=== PATIENT | male | born 1990 | race Caucasian/White ===

== ENCOUNTER 2017-01-27 03:39 | Observation (INO) | payer OTHER ==
[2017-01-27 05:51] LABS: Hematocrit 45 % (42-52); Hemoglobin 14.9 g/dl (14.0-18.0); Mean Corpuscular HGB Conc 33 g/dl (31-36); Mean Corpuscular Hemoglobin 28 pg (27-31); Mean Corpuscular Volume 84 fL (80-94); Mean Platelet Volume 8 um3 (7.4-10.4); Red Blood Count 5.38 10^6/ul (4.0-5.4); Red Cell Distribution Width 13 % (10.5-15); White Blood Count 9.4 10^3/ul (3.5-10.8)
[2017-01-27 06:01] LABS: ALT 22 U/L (7-52); AST 19 U/L (13-39); Albumin 4.5 g/dL (3.2-5.2); Alkaline Phosphatase 55 U/L (34-104); Anion Gap 7 mmol/L (2-11); BUN/Creatinine Ratio 13.7 (8-20); Blood Urea Nitrogen 17 mg/dL (6-24); CO2 Carbon Dioxide 28 mmol/L (22-32); Calcium 9.8 mg/dL (8.6-10.3); Chloride 103 mmol/L (101-111); Creatine Kinase 78 U/L (10-223); EGFR African American 89.3 (>60); EGFR Non-African American 69.4 (>60); Globulin 3.1 g/dL (2-4); Glucose 94 mg/dL (70-100); Potassium 3.7 mmol/L (3.5-5.0); Sodium 138 mmol/L (133-145); Total Protein 7.6 g/dL (6.4-8.9)
[2017-01-27 06:03] LABS: Acetaminophen < 15 mcg/mL; Alcohol < 10 mg/dL (<10); Salicylate < 2.50 mg/dL (<30)
[2017-01-27 06:14] LABS: TSH (Thyroid Stimulating Horm) 2.22 mcIU/mL (0.34-5.60)
--- NOTE | 2017-01-27 06:59 | ED ---
Khurram Hayes Rebecca, scribed for Kevin Crockett MD on 01/27/17 at 0546 . Substance Abuse/Use - HPI Summary HPI Summary: Pt is a 26 y/o M BIBA who presents to ED s/p Benadryl OD. Pt reports during evaluation that he took 6 Benadryl, whereas the nurse's triage reports 15 50 mg Benadryl were taken. Pt reports he started taking Benadryl last night before going to bed because he could not sleep. He also reported he started tkaing them "sometime in the morning" and then some more "later in the afternoon." Pt p /w slurred speech. Denies SIs, dry mouth and abdominal pain. States he called EMS because he "started to feel weird, like freakish." History is limited due to difficulty following pt's train of thought. - History Of Current Complaint Chief Complaint: EDOverdose Stated Complaint: OVERDOSE Time Seen by Provider: 01/27/17 04:13 Hx Obtained From: Patient, Medical Records Ingestion History: Type/Name Of Drug - Benadryl Overdose Characteristics: Oral Character: Other - Slurred speech Aggravating Factor(s): Nothing Alleviating Factor(s): Nothing Associated Signs And Symptoms: Other: - Denies SIs, cry mouth and abdominal pain - Allergies/Home Medications Allergies/Adverse Reactions: Allergies Allergy/AdvReac Type Severity Reaction Status Date / Time No Known Allergies Allergy Verified 01/27/17 04:27 Home Medications: Home Medications NK [No Home Medications Reported] 01/27/17 [History Confirmed 01/27/17] PMH/Surg Hx/FS Hx/Imm Hx Endocrine/Hematology History: Denies: Hx Diabetes, Hx Thyroid Disease Cardiovascular History: Denies: Hx Congestive Heart Failure, Hx Deep Vein Thrombosis, Hx Hypertension , Hx Myocardial Infarction, Hx Pacemaker/ICD Respiratory History: Denies: Hx Asthma, Hx Chronic Obstructive Pulmonary Disease (COPD), Hx Lung Cancer, Hx Pneumonia, Hx Pulmonary Embolism GI History: Denies: Hx Gall Bladder Disease, Hx Gastrointestinal Bleed, Hx Ulcer, Hx Urosepsis History: Denies: Hx Kidney Stones, Hx Renal Disease Neurological History: Denies: Hx Dementia, Hx Migraine, Hx Seizures, Hx Transient Ischemic Attacks (TIA) Psychiatric History: Denies: Hx Anxiety, Hx Depression, Hx Schizophrenia, Hx Bipolar Disorder - Surgical History Surgery Procedure, Year, and Place: appendectomy, tonsillectomy Infectious Disease History: No Infectious Disease History: Denies: History Other Infectious Disease, Traveled Outside the [place] in Last 30 Days - Family History Known Family History: Positive: Seizure Disorder - Sister had seizure disorder. Negative: Blood Disorder - Social History Alcohol Use: Rare Substance Use Type: Reports: Marijuana, Other Substance Use Comment - Amount & Last Used: meth Smoking Status (MU): Heavy Every Day Tobacco Smoker Type: Cigarettes Amount Used/How Often: 1/2 ppd Length of Time of Smoking/Using Tobacco: 10 years Have You Smoked in the Last Year: Yes Review of Systems Positive: Other - NEGATIVE: dry mouth Negative: Abdominal Pain Neurological: Other - slurred speech Positive: Other - NEGATIVE: SIs All Other Systems Reviewed And Are Negative: Yes Physical Exam - Summary Physical Exam Summary: The patient is well-nourished in no acute distress and in no acute pain. The skin is warm and dry and skin color reflects adequate perfusion. HEENT: The head is normocephalic and atraumatic. The pupils are equal and reactive. Pupils are not pinpinted and not dilated. The conjunctivae are clear and without drainage and the sclera are not injected. Nares are patent and without drainage. Mouth reveals dry mucous membranes and the throat is without erythema and exudate. The external ears are intact. The ear canals are patent and without drainage. The tympanic membranes are intact. Neck is supple with full range of motion and non-tender. Respiratory: Chest is non-tender. Lungs are clear to auscultation and breath sounds are symmetrical and equal. Cardiovascular: Hear is regular rhythm and tachycardic. There is no murmur or rub auscultated. There is no peripheral edema and pulses are symmetrical and equal. Abdomen: The abdomen is soft and non-tender. There are normal bowel sounds heard in all four quadrants and there is no organomegaly palpated. Musculoskeletal: There is no back pain noted. Extremities are non-tender with full range of motion. There is good capillary refill. There is no peripheral edema or calf tenderness elicited. Neurological: Patient is not alert and confused with slurred speech. It is difficult to follow his train of thought. No focal neurological deficits. Psychiatric: The patient has an appropriate affect and does not exhibit any anxiety or depression. Triage Information Reviewed: Yes Vital Signs On Initial Exam: Initial Vitals Temp Pulse Resp BP Pulse Ox 100.0 F 105 18 173/95 99 01/27/17 03:41 01/27/17 03:41 01/27/17 03:41 01/27/17 03:41 01/27/17 03:41 Vital Signs Reviewed: Yes - Anders Coma Scale Coma Scale Total: 15 Diagnostics - Vital Signs Vital Signs Temp Pulse Resp BP Pulse Ox 01/27/17 03:45 100.0 F 105 18 173/95 99 01/27/17 03:41 100.0 F 105 18 173/95 99 - Laboratory Lab Results: Lab Results 01/27/17 01/27/17 01/27/17 Range/Units 04:40 04:40 05:17 WBC 9.4 (3.5-10.8) 10^3/ul RBC 5.38 (4.0-5.4) 10^6/ul Hgb 14.9 (14.0-18.0) g/dl Hct 45 (42-52) % MCV 84 (80-94) fL MCH 28 (27-31) pg MCHC 33 (31-36) g/dl RDW 13 (10.5-15) % Plt Count 354 (150-450) 10^3/ul MPV 8 (7.4-10.4) um3 Neut % (Auto) 70.1 (38-83) % Lymph % (Auto) 23.0 L (25-47) % [place] % (Auto) 6.0 (1-9) % Eos % (Auto) 0.3 (0-6) % Baso % (Auto) 0.6 (0-2) % Absolute Neuts (auto) 6.6 (1.5-7.7) 10^3/ul Absolute Lymphs (auto) 2.2 (1.0-4.8) 10^3/ul Absolute Monos (auto) 0.6 (0-0.8) 10^3/ul Absolute Eos (auto) 0 (0-0.6) 10^3/ul Absolute Basos (auto) 0.1 (0-0.2) 10^3/ul Absolute Nucleated RBC 0 10^3/ul Nucleated RBC % 0 Sodium 138 (133-145) mmol/L Potassium 3.7 (3.5-5.0) mmol/L Chloride 103 (101-111) mmol/L Carbon Dioxide 28 (22-32) mmol/L Anion Gap 7 (2-11) mmol/L BUN 17 (6-24) mg/dL Creatinine 1.24 H (0.67-1.17) mg/dL Est GFR ( Amer) 89.3 (>60) Est GFR (Non-Af Amer) 69.4 (>60) BUN/Creatinine Ratio 13.7 (8-20) Glucose 94 (70-100) mg/dL Lactic Acid 1.2 (0.5-2.0) mmol/L Calcium 9.8 (8.6-10.3) mg/dL Total Bilirubin 0.40 (0.2-1.0) mg/dL AST 19 (13-39) U/L ALT 22 (7-52) U/L Alkaline Phosphatase 55 (34-104) U/L Total Creatine Kinase 78 (10-223) U/L Total Protein 7.6 (6.4-8.9) g/dL Albumin 4.5 (3.2-5.2) g/dL Globulin 3.1 (2-4) g/dL Albumin/Globulin Ratio 1.5 (1-3) TSH 2.22 (0.34-5.60) mcIU/mL Salicylates < 2.50 (<30) mg/dL Acetaminophen < 15 mcg/mL Serum Alcohol < 10 (<10) mg/dL Result Diagrams: 01/27/17 04:40 01/27/17 04:40 Lab Statement: Any lab studies that have been ordered have been reviewed, and results considered in the medical decision making process. - EKG 0354 Cardiac Rate: NL - 94 bpm EKG Rhythm: Sinus Rhythm ST Segment: Non-Specific - Non-specific ST changes EKG Interpretation: Normal axis, no STEMI Course/Dx - Course Assessment/Plan: Pt is a 26 y/o M BIBA who presents to ED s/p Benadryl OD. Pt reports during evaluation that he took 6 Benadryl, whereas the nurse's triage reports 15 50 mg Benadryl were taken. Pt reports he started taking Benadryl last night before going to bed because he could not sleep. He also reported he started tkaing them "sometime in the morning" and then some more "later in the afternoon." Pt p/w slurred speech. Denies SIs, dry mouth and abdominal pain. States he called EMS because he "started to feel weird, like freakish.". History is limited due to difficulty following pt's train of thought. EKG is sinus rhythm with no STEMI. Elevated BP noted and advised to f/u. In the ED course, pt was given fluids. Anticpiated that the pt will be D/C to home with Dx of drug overdose and a follow up with his PCP. - Diagnoses Differential Diagnosis/HQI/PQRI: Positive: Drug Abuse Provider Diagnoses: Drug overdose Discharge - Discharge Plan Condition: Stable Disposition: HOME Patient Education Materials: Adult Overdose (ED) Referrals: No Primary Care Phys,NOPCP [Primary Care Provider] - [facility] [Outside] The documentation as recorded by the Khurram aquino Rebecca accurately reflects the service I personally performed and the decisions made by me, Kevin Crockett MD.
[2017-01-27] MEDS: NS 0.9% 1000 ML* 2,000 ML IV ONE ×2 (07:52→07:53)
[2017-01-27] MEDS ORDERED: NS 0.9% 1000 ML* 1,000 ML IV SCH (08:15)
[2017-01-27] MEDS ORDERED: Acetaminophen TAB* 325 MG PO PRN (08:37)
[2017-01-27] MEDS ORDERED: Ondansetron INJ* 2 MG/ML VIAL IV PRN (08:37)
--- NOTE | 2017-01-27 09:44 | ED ---
I, Oumar Azar, scribed for Wilmer Beach MD on 01/27/17 at 0843 . Progress - Progress Note Progress Note: Consulted Dr. Osborne (hospitalist) who agrees to admit the patient. Mr. Frank admits to taking a lot of benadryl over the course of the last 12-24 hours with his last dose about 0100. He has been here 5 hours with no change in his clinical condition and I have asked the hospitalists to admit him. He has some elements clinically of antihistamine toxicity but there may be more on board. He is admitted in serious condition with a diagnosis of antihistamine OD. Course/Dx - Diagnoses Provider Diagnoses: Drug overdose - Provider Notifications Discussed Care Of Patient With: Renetta Osborne Time Discussed With Above Provider: 08:00 Instructed by Provider To: Other - Consulted Dr. Osborne (hospitalist) who agrees to admit the patient. The documentation as recorded by the Nissa aquino Alfonso accurately reflects the service I personally performed and the decisions made by me, Wilmer Beach MD.
[2017-01-27] MEDS ORDERED: Mouth Piece, Nicotine* 1 EACH CARTRIDGE INH PRN (09:50)
[2017-01-27] MEDS ORDERED: Nicotine Inhaler* 10 MG AMP INH PRN (09:50)
[2017-01-27] MEDS ORDERED: Nicotine PATCH 21 MG/24 HR* PATCH TRANSDERM SCH (10:30)
[2017-01-27 11:24] VITALS: BP 130/82
--- NOTE | 2017-01-27 12:41 | CONSULT ---
Identification - Patient Identification Reason for Psychiatric Consultation: Suicidal Ideation, Homicidal Ideation -: Patient is a 26 year old, M admitted on 01/27/17. - MHU Identification Hx Psychiatric Hospitalization: Yes - Patient non-compliance with most of interview Prior Psychiatric Diagnosis: Unspecified depressive disorder Arrived to Hospital Via: Ambulatory History - Objective HPI: HPI: ------ Patient is a 26yo male with PPHx significant for an Unspecified depressive d/o. He reports hx of prior psychiatric hospitalization and prior suicide attempt. Patient admitted to [facility] for IVFs and monitoring after self reported OD on Benadryl. Patient declines to participate in interview. He does endorse report of having recently broken up with his GF. Patient is easily agitated. He denies SI/HI. He is focused on discharge. He declines [facility] for this provider to talk to roommates, GF, and reports he has no family. Patient reports he did not OD on Benadryl, and reports he took 2-3 at a time throughout the day to get away from it. Due to patient's hx of suicide attempt and report of recent SIB, apathy, and diminished mood, recommendation made to transfer patient to [facility] by phone to primary physician. Patient reportedly eloped after encounter with this provider. Past Psych Hx: Inpt - Patient reports hx of psychiatric hospitalization. Outpt - Patient declines to engage the interview or provide [facility] for collateral information. Psychotropic med hx - Patient declines to engage the interview or provide [facility] for collateral information. Suicide attempt Hx and Hx of SIB: Patient declines to engage the interview or provide [facility] for collateral information. Substance Hx: Patient declines to engage the interview or provide [facility] for collateral information. Medical Hx: None reported Allergies: --------- NKDA Family Hx: Patient declines to engage the interview or provide [facility] for collateral information. Social Hx: --------- Patient declines to engage the interview or provide [facility] for collateral information. MSE: ----- Appearance - moderate build male, looks stated age, fair hygeine, in NAD Behavior - easily agitated, uncooperative Speech - RVR, prosody wnl Eye Contact - poor Mood - "fine" Affect - constricted TP - linear and GD TC - focused on discharge Perception - no signs of psychosis noted or reported Orientation - A&Ox3 Cognition - intact Insight - poor Judgement - poor SI / HI SI present on admission, currently denies both ASSESSMENT: 1. Unspecified depressive disorder 2. R/O s/p Suicide attempt by OD on Benadryl Recommendation: 1. Recommend transfer to [facility], once medically stable, for ongoing psychiatric care. Exam Appearance: Well Developed/Nourished Hygiene: Normal Grooming: Fairly Well Kept Psychomotor Activities: Normal Attitude and Relatedness: Hostile Eye Contact: Poor - Speech Quality: Unpressured Latencies: Normal Quantity: Terse Patient's Decription of Mood: "Fine" Observed Affect: Constricted Affect Consistent with: Dysphoria Patient's Thought Process: Goal Directed Thought Content: No Passive Wish - Patient non-compliance with most of interview, No Suicidal Planning - Patient non-compliance with most of interview , No Homicidal Ideation - Patient non-compliance with most of interview, No Paranoid Ideation - Patient non-compliance with most of interview Type of Hallucinations: Visual: No - Patient non-compliance with most of interview, Auditory: No - Patient non-compliance with most of interview, Command : No - Patient non-compliance with most of interview Level of Consciousness: Alert Orientation: Yes Intact, Yes Orientated to Time, Yes Orientated to Place, Yes Orientated to Person Impulse Control: Poor Insight and Judgement: Poor Impression - Impression Clinical Impression: Unspecified Depressive Disorder Inpatient DSM-IV Dx: Unspecified Depressive Disorder Merits Inpatient Hospitalization: Yes - [place] [facility] Mental Illness: Unspecified Depressive Disorder Problem List - U Problems Type of Problem: Affect Status of Problem: Active Problem: Depression with recent suicide attempt vs SIB Plan - Treatment Plan Treatment Plan: Recommendation: 1. Recommend transfer to [facility], once medically stable, for ongoing psychiatric care. Continued Medication Management: Start Medication Medications: Current Medications Acetaminophen (Tylenol Tab*) 650 mg PO Q4H PRN PRN Reason: PAIN Device (Nicotine Mouth Piece*) 1 each INH .USE WITH NICOTROL PRN PRN Reason: CRAVING Sodium Chloride (Ns 0.9% 1000 Ml*) 1,000 mls @ 150 mls/hr IV PER RATE [facility] Last Admin: 01/27/17 11:44 Dose: 150 mls/hr Nicotine (Nicotine Inhaler*) 10 mg INH Q2H PRN PRN Reason: CRAVING Nicotine (Nicotine Patch 21 Mg/24 Hr*) 1 patch TRANSDERM DAILY@0800 [facility] Last Admin: 01/27/17 11:29 Dose: Not Given Ondansetron HCl (Zofran Inj*) 4 mg IV Q6H PRN PRN Reason: NAUSEA Pharmacy Profile Note (Nicotine Patch Removal Note*) 1 note FOLLOW UP 2099 [facility] - Discharge Plan Discharge Plan: Outpatient Follow Up
--- NOTE | 2017-01-27 14:14 | HP ---
HISTORY AND PHYSICAL: DATE OF ADMISSION: 01/27/17 PRIMARY CARE PROVIDER: None. CHIEF COMPLAINT: Benadryl overdose. HISTORY OF PRESENT ILLNESS: Mr. Frank is a 26-year-old male who states that beginning yesterday mid morning, he began to take two tablets of generic sleep aid (Benadryl 50 mg a piece) every couple of hours to try to go sleep. The patient states that he was not doing this in an attempt to harm himself. Of note, he has been fighting recently with his girlfriend but again denies that this is the reason for taking this much Benadryl. The patient stated that he became scarred at approximately 1 a.m. and called the ambulance because he did not want to . The patient notes that his speech was slurred but he states that it is getting better. He denies any lightheadedness but has not really been out of bed. During my evaluation, the patient states that he has to get home because his child is going to school tomorrow; when I corrected him that tomorrow is Monday, he said "Oh, right." The patient also noticed a tray going by the door in the emergency room and he questioned where that tray was going as he needed to take care of it. PAST MEDICAL HISTORY: None. PAST SURGICAL HISTORY: Appendectomy. MEDICATIONS: None. ALLERGIES: No known drug allergies. FAMILY HISTORY: Mom is living; she is 48. She has history of glaucoma. Dad is living; he is 48. He is unaware of his health. SOCIAL HISTORY: The patient smokes 1 pack per day x15 years. He does not drink alcohol. He does not use drugs routinely though states that he has tried illicit drugs in the past. He does not elaborate on this. He is unemployed. He has a girlfriend. He has three children and one on the way. He indicates that his girlfriend Eleanor Fletcher would be his healthcare proxy. He is unaware of her phone number. REVIEW OF SYSTEMS: The patient denies any fevers, chills, anorexia. No chest pain. No edema. No palpitations. No cough. No shortness of breath. No nausea, vomiting, abdominal pain, constipation, diarrhea, hematochezia. No hematuria, no dysuria, no focal weakness or sensory loss. No sudden changes in vision. No dysphagia. No joint pains or muscle pains out of the ordinary. No rashes, no anxiety or depression. PHYSICAL EXAMINATION GENERAL: The patient is a well-developed young male lying in the stretcher, in no acute distress. VITAL SIGNS: Blood pressure 127/90, pulse 83, respirations 20, temperature 100 , O2 sat 100% on room air. HEENT: Pupils are equal, they are round, they react to light. Extraocular muscles are intact. Oropharynx is clear. Oral mucosa is moist. NECK: There is no submandibular, cervical, or supraclavicular adenopathy noted. Thyroid is not enlarged. No thyroid nodules are noted. PULMONARY: Lungs are clear to auscultation bilaterally. CARDIAC: Normal S1 and S2. Regular rate and rhythm. I do not appreciate any murmurs. ABDOMEN: Bowel sounds present. Abdomen is soft, nontender, nondistended. MUSCULOSKELETAL: There is no cyanosis or clubbing of the digits. There is full active range of motion of all 4 extremities. SKIN: Warm and dry. There are no rashes. NEURO: Cranial nerves II through XII are grossly intact. Sensation is intact to light touch. Strength is 5/5 and symmetric in both upper and lower extremities bilaterally. The patient's speech is somewhat slurred. PSYCH: The patient is alert. He seems at times confused. He makes very poor eye contact during my entire evaluation. LABORATORY DATA/IMAGING STUDIES: WBC 9.4, hemoglobin 14.9, hematocrit 45, platelets 354. Sodium 138, potassium 3.7, chloride 103, CO2 28, BUN 17, creatinine 1.24, glucose 94, lactic acid 1.2, calcium 9.8, bilirubin 0.4, AST 19 , ALT 22, alk phos 55. CPK 78, albumin 4.5, TSH 2.22, salicylate less than 2.5 , Tylenol less than 15, alcohol less than 10. EKG reveals normal sinus rhythm without any acute ST or T wave abnormalities ASSESSMENT AND PLAN: Mr. Frank is a 26-year-old male who reportedly unintentionally overdosed on Benadryl yesterday in an attempt to get sleep who presented to the emergency room on self referral due to being concerned about the amount of Benadryl he took. 1. Unintentional Benadryl overdose. While the patient states that this is unintentional, I am concerned given the behavior especially taking as many tablets of Benadryl as he did throughout the day to try to sleep during the middle of the day, which would seem odd. I do feel that he needs a psychiatry evaluation prior to being discharged home. The patient was noted to be confused and with continued slurred speech in the emergency room. I do not feel that it is safe for him to be discharged home at this point. I do not feel that he should leave the hospital even against medical advice until he is seen by Psychiatry as again I am concern that this may not have been completely unintentional. The patient will continue to receive normal saline at 150 mL per hour. Vital signs will be monitored. I have spoke with Dr. Spangler from Psychiatry who will be up to see the patient, hopefully later this morning. I did inform the patient that perhaps he can go home later this afternoon when he stated that he wished to leave out of the emergency room. 2. DVT prophylaxis: According to the Adult Thrombosis Prophylaxis Risk Factor Assessment Guide, the patient has a total risk factor score of 0, making him low risk, ambulation will be utilized as DVT prophylaxis. 3. Code status: Full. Again the patient indicates that his girlfriend Eleanor Fletcher is his healthcare proxy. Fifty-five minutes was spent admitting this patient. [id number]/[facility] #: [id number] JUDI
--- NOTE | 2017-01-27 20:53 | PN ---
Progress Note - Progress Note Date of Service: 01/27/17 Note: I was notified by nursing that the patient eloped around 1645. He had met with the psychiatrist just a short while before. When I spoke with Dr. Spangler he stated the patient was not cooperative and refused to answer his questions. Dr. Spangler stated that he wanted the patient to be admitted to the MHU. I did not think the patient was ready to go to the MHU tonight so I recommended he go tomorrow. Given the patient was supposed to go to the MHU, security and the [place] police were contacted. I filled out 9.57 paperwork to have the patient brought back to the ER.
[2017-01-27] MEDS ORDERED: Nicotine Patch Removal NOTE FOLLOW UP SCH (21:00)
--- NOTE | 2017-02-01 23:31 | DS ---
DISCHARGE SUMMARY: DATE OF ADMISSION: 01/27/17 DATE OF DISCHARGE AGAINST MEDICAL ADVICE: 01/27/17 PRINCIPAL DIAGNOSIS: Benadryl overdose. DISCHARGE MEDICATIONS: None. HOSPITAL COURSE: Mr. 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 At the time of my evaluation, the patient was sleepy and he seemed somewhat confused. I was concerned about his story of the overdose; therefore, admitted him to the telemetry floor. I had Psychiatry see the patient. The patient essentially refused to speak with the psychiatrist. Approximately 30 minutes after the psychiatrist left the room, the nurse went to check on the patient and he was found to have eloped from the hospital. The patient, therefore, was discharged against medical advice. There were concerns about the patient's eloping when the psychiatrist did recommend that he be admitted to the mental health unit; therefore, security in the hospital was notified and [facility] was notified. I filled out paperwork to have the patient brought back by law enforcement if necessary. FOLLOWUP CONCERNS: The patient is discharged against medical advice on and is to be brought back by law enforcement for reevaluation. TIME SPENT: 10 minutes spent on this discharge. [id number]/[facility] #: [id number]
== END 2017-01-27 17:00 ==
LOC: ED 03:39 → MEDTELE 08:12
PROVIDERS: ADMIT Hospitalist; ATTEND Hospitalist
DX: T45.0X2A Poisoning by antiallergic and antiemetic drugs, intentional self-harm, initial encounter (principal); F32.9 Major depressive disorder, single episode, unspecified; F17.210 Nicotine dependence, cigarettes, uncomplicated
CPT/HCPCS: 36415; 80053; 80320; 80329; 82550; 83605; 84443; 85025; 93005; 96360; 96361; 99283; A9270-GY; G0378; G0480

== ENCOUNTER → 2017-01-27 19:00 | Emergency (ER) | payer OTHER ==
[2017-01-27 19:49] LABS: Hematocrit 42 % (42-52); Hemoglobin 13.8 g/dl (14.0-18.0); Mean Corpuscular HGB Conc 33 g/dl (31-36); Mean Corpuscular Hemoglobin 28 pg (27-31); Mean Corpuscular Volume 85 fL (80-94); Mean Platelet Volume 7 um3 (7.4-10.4); Red Blood Count 4.94 10^6/ul (4.0-5.4); Red Cell Distribution Width 13 % (10.5-15)
[2017-01-27 19:53] LABS: Urine Bilirubin Negative (Negative); Urine Glucose Negative (Negative); Urine Nitrite Negative (Negative)
[2017-01-27 20:04] LABS: ALT 19 U/L (7-52); AST 16 U/L (13-39); Albumin 4.5 g/dL (3.2-5.2); Alkaline Phosphatase 50 U/L (34-104); Anion Gap 4 mmol/L (2-11); BUN/Creatinine Ratio 10.5 (8-20); Blood Urea Nitrogen 10 mg/dL (6-24); CO2 Carbon Dioxide 26 mmol/L (22-32); Calcium 9.5 mg/dL (8.6-10.3); Chloride 107 mmol/L (101-111); EGFR African American 121.4 (>60); EGFR Non-African American 94.4 (>60); Globulin 2.6 g/dL (2-4); Glucose 95 mg/dL (70-100); Potassium 3.9 mmol/L (3.5-5.0); Sodium 137 mmol/L (133-145); Total Protein 7.1 g/dL (6.4-8.9)
[2017-01-27 20:05] LABS: Benzodiazepine Urine Screen None Detected (None Detect)
[2017-01-27 20:44] LABS: Acetaminophen < 15 mcg/mL; Alcohol < 10 mg/dL (<10); Salicylate < 2.50 mg/dL (<30)
[2017-01-27 20:54] LABS: TSH (Thyroid Stimulating Horm) 0.78 mcIU/mL (0.34-5.60)
[2017-01-27 23:06] VITALS: BP 131/68
--- NOTE | 2017-01-28 05:53 | ED ---
Stanley Hayes SooYoung, scribed for Kevin Crockett MD on 01/27/17 at 1931 . Psychiatric Complaint - HPI Summary HPI Summary: LEVEL 5 CAVEAT - UNCOOPERATIVE A 26 y/o M presents to ED for MHE. 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 Pt was admitted, but attempted to leave. He was detained 945 by police. Pt is angry, uncooperative for exam. - History Of Current Complaint Chief Complaint: EDGeneral Hx Obtained From: Patient Timing: Constant Related History: Positive For: Prior Psychiatric Issues Has Suicidal: Denies: Thoughts - Allergies/Home Medications Allergies/Adverse Reactions: Allergies Allergy/AdvReac Type Severity Reaction Status Date / Time No Known Allergies Allergy Verified 01/27/17 04:27 PMH/Surg Hx/FS Hx/Imm Hx Previously Healthy: No - Overdose Endocrine/Hematology History: Denies: Hx Diabetes, Hx Thyroid Disease Cardiovascular History: Denies: Hx Congestive Heart Failure, Hx Deep Vein Thrombosis, Hx Hypertension , Hx Myocardial Infarction, Hx Pacemaker/ICD Respiratory History: Denies: Hx Asthma, Hx Chronic Obstructive Pulmonary Disease (COPD), Hx Lung Cancer, Hx Pneumonia, Hx Pulmonary Embolism GI History: Denies: Hx Gall Bladder Disease, Hx Gastrointestinal Bleed, Hx Ulcer, Hx Urosepsis History: Denies: Hx Kidney Stones, Hx Renal Disease Sensory History: Reports: Hx Contacts or Glasses Denies: Hx Hearing Aid Opthamlomology History: Reports: Hx Contacts or Glasses Neurological History: Denies: Hx Dementia, Hx Migraine, Hx Seizures, Hx Transient Ischemic Attacks (TIA) Psychiatric History: Denies: Hx Anxiety, Hx Depression, Hx Schizophrenia, Hx Bipolar Disorder - Surgical History Surgery Procedure, Year, and Place: appendectomy, tonsillectomy Infectious Disease History: No Infectious Disease History: Denies: History Other Infectious Disease, Traveled Outside the [place] in Last 30 Days - Family History Known Family History: Positive: Seizure Disorder - Sister had seizure disorder. Negative: Blood Disorder - Social History Occupation: Unemployed Lives: With Family Alcohol Use: None Hx Substance Use: Yes Substance Use Type: Reports: Marijuana, Other Substance Use Comment - Amount & Last Used: meth Hx Tobacco Use: Yes Smoking Status (MU): Heavy Every Day Tobacco Smoker Type: Cigarettes Amount Used/How Often: 1 ppd Length of Time of Smoking/Using Tobacco: 10 years Have You Smoked in the Last Year: Yes Review of Systems - ROS Summary Review of Systems Summary: LEVEL 5 CAVEAT - UNCOOPERATIVE Negative: Fever Negative: Abdominal Pain Psychological: Other - neg: SI All Other Systems Reviewed And Are Negative: No Physical Exam - Summary Physical Exam Summary: The patient is well-nourished in no acute distress and in no acute pain. The skin is warm and dry and skin color reflects adequate perfusion. HEENT: The head is normocephalic and atraumatic. The pupils are equal and reactive. The conjunctivae are clear and without drainage. Nares are patent and without drainage. Mouth reveals moist mucous membranes and the throat is without erythema and exudate. The external ears are intact. The ear canals are patent and without drainage. The tympanic membranes are intact. Neck is supple with full range of motion and non-tender. There are no carotid bruits. There is no neck vein distension. Respiratory: Chest is non-tender. Lungs are clear to auscultation and breath sounds are symmetrical and equal. Cardiovascular: Hear is regular rate and rhythm. There is no murmur or rub auscultated. There is no peripheral edema and pulses are symmetrical and equal. Abdomen: The abdomen is soft and non-tender. There are normal bowel sounds heard in all four quadrants and there is no organomegaly palpated. Musculoskeletal: There is no back pain noted. Extremities are non-tender with full range of motion. There is good capillary refill. There is no peripheral edema or calf tenderness elicited. No evidence of trauma to UE and LE. Neurological: Patient is alert and oriented to person, place and time. Speech is appropriate. The patient has symmetrical motor strength in all four extremities. Cranial nerves are grossly intact. Deep tendon reflexes are symmetrical and equal in all four extremities. Psychiatric: The patient is angry . Triage Information Reviewed: Yes Vital Signs On Initial Exam: Initial Vitals Temp Pulse Resp BP Pulse Ox 98.4 F 85 18 134/74 100 01/27/17 19:04 01/27/17 19:04 01/27/17 19:04 01/27/17 19:04 01/27/17 19:04 Vital Signs Reviewed: Yes Diagnostics - Vital Signs Vital Signs Temp Pulse Resp BP Pulse Ox 01/27/17 19:04 98.4 F 85 18 134/74 100 - Laboratory Lab Results: Lab Results 01/27/17 01/27/17 01/27/17 Range/Units 19:38 19:38 19:40 WBC 10.0 (3.5-10.8) 10^3/ul RBC 4.94 (4.0-5.4) 10^6/ul Hgb 13.8 L (14.0-18.0) g/dl Hct 42 (42-52) % MCV 85 (80-94) fL MCH 28 (27-31) pg MCHC 33 (31-36) g/dl RDW 13 (10.5-15) % Plt Count 314 (150-450) 10^3/ul MPV 7 L (7.4-10.4) um3 Neut % (Auto) 69.1 (38-83) % Lymph % (Auto) 22.7 L (25-47) % [place] % (Auto) 7.2 (1-9) % Eos % (Auto) 0.3 (0-6) % Baso % (Auto) 0.7 (0-2) % Absolute Neuts (auto) 6.9 (1.5-7.7) 10^3/ul Absolute Lymphs (auto) 2.3 (1.0-4.8) 10^3/ul Absolute Monos (auto) 0.7 (0-0.8) 10^3/ul Absolute Eos (auto) 0 (0-0.6) 10^3/ul Absolute Basos (auto) 0.1 (0-0.2) 10^3/ul Absolute Nucleated RBC 0 10^3/ul Nucleated RBC % 0 Sodium 137 (133-145) mmol/L Potassium 3.9 (3.5-5.0) mmol/L Chloride 107 (101-111) mmol/L Carbon Dioxide 26 (22-32) mmol/L Anion Gap 4 (2-11) mmol/L BUN 10 (6-24) mg/dL Creatinine 0.95 (0.67-1.17) mg/dL Est GFR ( Amer) 121.4 (>60) Est GFR (Non-Af Amer) 94.4 (>60) BUN/Creatinine Ratio 10.5 (8-20) Glucose 95 (70-100) mg/dL Calcium 9.5 (8.6-10.3) mg/dL Total Bilirubin 1.00 (0.2-1.0) mg/dL AST 16 (13-39) U/L ALT 19 (7-52) U/L Alkaline Phosphatase 50 (34-104) U/L Total Protein 7.1 (6.4-8.9) g/dL Albumin 4.5 (3.2-5.2) g/dL Globulin 2.6 (2-4) g/dL Albumin/Globulin Ratio 1.7 (1-3) TSH 0.78 (0.34-5.60) mcIU/mL Urine Color Urine Appearance Urine pH (5-9) Ur Specific [place] (1.010-1.030) Urine Protein (Negative) Urine Ketones (Negative) Urine Blood (Negative) Urine Nitrate (Negative) Urine Bilirubin (Negative) Urine Urobilinogen (Negative) Ur Leukocyte Esterase (Negative) Urine Glucose (Negative) Salicylates < 2.50 (<30) mg/dL Urine Opiates Screen None detected (None Detect) Acetaminophen < 15 mcg/mL Ur Barbiturates Screen None detected (None Detect) Ur Phencyclidine Scrn None detected (None Detect) Ur Amphetamines Screen Presumptive positive H (None Detect) U Benzodiazepines Scrn None detected (None Detect) Urine Cocaine Screen None detected (None Detect) U Cannabinoids Screen Presumptive positive H (None Detect) Serum Alcohol < 10 (<10) mg/dL 01/27/17 Range/Units 19:40 WBC (3.5-10.8) 10^3/ul RBC (4.0-5.4) 10^6/ul Hgb (14.0-18.0) g/dl Hct (42-52) % MCV (80-94) fL MCH (27-31) pg MCHC (31-36) g/dl RDW (10.5-15) % Plt Count (150-450) 10^3/ul MPV (7.4-10.4) um3 Neut % (Auto) (38-83) % Lymph % (Auto) (25-47) % [place] % (Auto) (1-9) % Eos % (Auto) (0-6) % Baso % (Auto) (0-2) % Absolute Neuts (auto) (1.5-7.7) 10^3/ul Absolute Lymphs (auto) (1.0-4.8) 10^3/ul Absolute Monos (auto) (0-0.8) 10^3/ul Absolute Eos (auto) (0-0.6) 10^3/ul Absolute Basos (auto) (0-0.2) 10^3/ul Absolute Nucleated RBC 10^3/ul Nucleated RBC % Sodium (133-145) mmol/L Potassium (3.5-5.0) mmol/L Chloride (101-111) mmol/L Carbon Dioxide (22-32) mmol/L Anion Gap (2-11) mmol/L BUN (6-24) mg/dL Creatinine (0.67-1.17) mg/dL Est GFR ( Amer) (>60) Est GFR (Non-Af Amer) (>60) BUN/Creatinine Ratio (8-20) Glucose (70-100) mg/dL Calcium (8.6-10.3) mg/dL Total Bilirubin (0.2-1.0) mg/dL AST (13-39) U/L ALT (7-52) U/L Alkaline Phosphatase (34-104) U/L Total Protein (6.4-8.9) g/dL Albumin (3.2-5.2) g/dL Globulin (2-4) g/dL Albumin/Globulin Ratio (1-3) TSH (0.34-5.60) mcIU/mL Urine Color Yellow Urine Appearance Clear Urine pH 6.0 (5-9) Ur Specific [place] 1.024 (1.010-1.030) Urine Protein Negative (Negative) Urine Ketones Negative (Negative) Urine Blood Negative (Negative) Urine Nitrate Negative (Negative) Urine Bilirubin Negative (Negative) Urine Urobilinogen Negative (Negative) Ur Leukocyte Esterase Negative (Negative) Urine Glucose Negative (Negative) Salicylates (<30) mg/dL Urine Opiates Screen (None Detect) Acetaminophen mcg/mL Ur Barbiturates Screen (None Detect) Ur Phencyclidine Scrn (None Detect) Ur Amphetamines Screen (None Detect) U Benzodiazepines Scrn (None Detect) Urine Cocaine Screen (None Detect) U Cannabinoids Screen (None Detect) Serum Alcohol (<10) mg/dL Result Diagrams: 01/27/17 19:38 01/27/17 19:38 Lab Statement: Any lab studies that have been ordered have been reviewed, and results considered in the medical decision making process. Course/Dx - Course Course Of Treatment: Bloodwork is without significant abnormality. Pt is medically clear for MHE at 2108. Discussed pt with mental health dietary clerk, states OK to d/c. MH dietary clerk states pt is future oriented and denying SI. Will D/C home. - Differential Dx/Clinical Impression Differential Diagnosis/HQI/PQRI: Positive: Depression, Suicidal Ideation Provider Diagnosis: benadryl overdose, no evidence of depression Discharge - Discharge Plan Condition: Stable Disposition: HOME Referrals: No Primary Care Phys,NOPCP [Primary Care Provider] - [facility] – [place] PHYSICIAN REFERRAL [Outside] Additional Instructions: Per completion of a mental health evaluation, you are cleared for release and do not require inpatient psychiatric hospitalization at this time. Please go to nearest emergency room or call 911 if safety concerns arise or condition worsens. Important Phone Numbers: [facility] [phone] Suicide Prevention and Crisis Services [phone] National Suicide Prevention Lifeline 952-152-ICRC (7623) [facility] [phone] Alcoholics Anonymous [phone] [facility] [phone] [place] [employer] [phone] The documentation as recorded by the Stanley aquino SooYoung accurately reflects the service I personally performed and the decisions made by me, Kevin Crockett MD.
== END | disposition home or self-care (01) ==
LOC: ED 19:00
DX: T45.0X1A Poisoning by antiallergic and antiemetic drugs, accidental (unintentional), initial encounter (principal); Y92.9 Unspecified place or not applicable; F17.210 Nicotine dependence, cigarettes, uncomplicated
CPT/HCPCS: 36415; 80053; 80307; 80320; 80329; 81003; 84443; 85025; 93005; 99283; G0480